=== PATIENT | female | born 1975 | race Caucasian/White ===

== ENCOUNTER 2017-08-26 06:00 | Outpatient (CLI) | payer OTHER ==
[~2017-08-26] VITALS: Ht 165.1 cm; Wt 90.7 kg
[2017-08-26] MEDS ORDERED: CYMBALTA60 MG PO (10:52)
[2017-08-26] MEDS ORDERED: NEURONTIN800 MG PO (10:52)
[2017-08-26] MEDS ORDERED: SYNTHROID50 MCG PO (10:53)
[2017-08-26] MEDS ORDERED: METHOCARBAMOL500 MG PO (10:53)
[2017-08-26] MEDS ORDERED: ABILIFY5 MG PO (10:54)
[2017-08-26] MEDS ORDERED: VITAMIN D5000 UNIT PO (10:54)
[2017-08-26] MEDS ORDERED: TRAZODONE HCL50 MG PO (10:55)
[2017-08-26] MEDS ORDERED: SIMVASTATIN10 MG PO (10:55)
[2017-08-26] MEDS ORDERED: FOLIC ACID1 MG PO (10:55)
[2017-08-26] MEDS ORDERED: BUPROPION HCL100 M1 PO (10:56)
== END 2017-08-26 06:05 | disposition home or self-care (01) ==
LOC: RAD 06:00 → EDBD 06:00 → RAD 06:05 → EDSTATUS 09:30 → ADM 09:30 → SURH 09-02 09:30 → EDSTATUS 09-02 09:30
DX: M75.101 Unspecified rotator cuff tear or rupture of right shoulder, not specified as traumatic (principal); Z01.818 Encounter for other preprocedural examination